=== PATIENT | female | born 1970 | race Caucasian/White ===

== ENCOUNTER 2018-12-03 08:28 | Outpatient (CLI) | payer BC | END 2018-12-03 08:29 | disposition home or self-care (01) | LOC: C.LAB 08:28 | DX: M05.79 Rheumatoid arthritis with rheumatoid factor of multiple sites without organ or systems involvement (principal) ==

== ENCOUNTER 2019-03-06 14:24 | Outpatient (CLI) | payer BC | END 2019-03-06 14:25 | disposition home or self-care (01) | LOC: C.LAB 14:24 | DX: M05.79 Rheumatoid arthritis with rheumatoid factor of multiple sites without organ or systems involvement (principal) ==